=== PATIENT | female | born 1990 | race Hispanic/Latino ===

== ENCOUNTER → 2017-02-24 | Outpatient (CLI) | payer OTHER ==
[~2017-02-24] MED LIST: SINCALIDE 3 MCG/VIAL INJ ONE
--- NOTE | 2017-02-24 23:53 | Diagnostic Imaging Report ---
EXAM: HEPTOBILIARY W PHARM DATE: 02/24/2017 12:00 AM Time stamp on exam: 1609 hours INDICATION: Gallstones, upper abdominal pain COMPARISON: None TECHNIQUE: Following intravenous administration of 6.1 millicuries of technetium-99m mebrofenin, dynamic images of the abdomen in the anterior projection were obtained through 60 minutes. Sincalide (CCK analog) 1.5 mg was administered intravenously over 30 minutes with additional imaging for determination of gallbladder ejection fraction. FINDINGS: Perfusion to the liver is normal. Extraction of tracer from the blood pool by the liver parenchyma is normal. Tracer is seen promptly within the biliary tract. The gallbladder begins to fill by 51 minutes post-injection of tracer and fills adequately. Tracer is first seen in the small bowel at 12 minutes. The gallbladder ejection fraction with administration of sincalide is 25% (normal greater than 40%). IMPRESSION: Delayed filling of the gallbladder and low ejection fracture of 25% would support a clinical diagnosis of gallbladder dyskinesia/chronic cholecystitis. Filling of the gallbladder excludes a diagnosis of acute cystic duct obstruction. Signed by: Dr. Ruth Schreiber M.D. on 02/24/2017 11:49 PM
== END ==
LOC: NM 13:07
PROVIDERS: ATTEND Internal Medicine Gastroenterology
DX: R10.10 Upper abdominal pain, unspecified (principal); K80.80 Other cholelithiasis without obstruction
CPT/HCPCS: 78227; 81025; A9537; J2805

== ENCOUNTER → 2017-02-25 | Day surgery (SDC) | payer OTHER ==
[~2017-02-25] MED LIST changes: +FENTANYL CITRATE/PF 100MCG/2 ML INJ ONE; +HYOSCYAMINE SULFATE 0.5 MG/ML AMP ONE; +LIDOCAINE HCL 2% LOCAL INJ 5 ML SDV VIAL INJ ONE; +MIDAZOLAM HCL 2 MG/2 ML VIAL ONE; +PROPOFOL IV EMULSION 10 MG/ML 50 ML VIAL ONE; -SINCALIDE 3 MCG/VIAL INJ ONE
[2017-02-25 12:47] LABS: WBC,FECAL (FECAL LACTOFERRIN) NEGATIVE (NEGATIVE)
[2017-02-25 14:58] LABS: C DIFFICILE TOXIN A&B AMP PROB NEGATIVE (NEGATIVE)
--- NOTE | 2017-02-25 15:37 | Operative Report ---
DATE OF PROCEDURE: February 25, 2017 REFERRING PHYSICIAN: Dr. Qamar Sharma. PROCEDURES PERFORMED: Esophagogastroduodenoscopy with esophageal dilatation and colonoscopy with biopsies. INDICATIONS FOR EGD: Dysphagia to solids, history of nausea and vomiting. INDICATIONS FOR COLONOSCOPY: Diarrhea, history of mucousy stools. MEDICATIONS: Patient was done under MAC. Please see anesthesiologist's note. PROCEDURE: With the patient in lateral decubitus position, flexible fiberoptic Olympus gastroscope was introduced into the esophagus under direct visualization without any difficulty. There was some patchy erythema noted in distal esophagus. A mild stricture was noted at the GE junction and was dilated to size 52-[place] Byers. The scope was then advanced with ease into the stomach and mucosa overlying the antrum and the body revealed some patchy erythema and low-grade edema and biopsies were obtained and sent to stain for H. pylori. The pylorus was of normal contour and shape. It was intubated with ease and the scope was advanced all the way to the second portion of the duodenum. Biopsies were obtained from the proximal second portion to rule out sprue. There was an approximately 5 mm nodule in the proximal second portion ? hypertrophied accessory papilla and that was biopsied. The scope was then withdrawn back into the stomach and retroflexed and mucosa overlying the fundus and the cardia appeared to be within normal limits. The scope was then straightened out. The stomach was decompressed. Scope was subsequently withdrawn. Patient tolerated the procedure well. IMPRESSION 1. Mild distal esophagitis. 2. Esophageal stricture at gastroesophageal junction, dilated to size 52-[place] Byers. 3. Gastritis biopsied, biopsy sent to stain for H. pylori. 4. Approximately 5 mm nodule ? hypertrophied accessory papilla proximal second portion, biopsied. PLAN: Follow up histology. Initiate Protonix 40 mg 1 p.o. q.a.m. a.c. Patient was then turned around and after adequate lubrication of the anal canal, a flexible fiberoptic Olympus colonoscope was inserted into the rectum with ease and advanced all the way to the cecum. Mucosa overlying the cecum appeared to be within normal limits. The ileocecal valve was intubated and the scope was advanced into the terminal ileum. Biopsies were obtained. The scope was then withdrawn back into the colon. It was then withdrawn slowly. Mucosa overlying the ascending and the transverse was within normal limits. There were some patchy areas of erythema and low-grade edema noted. In the descending, sigmoid, and rectum, random biopsies were obtained. The scope was then retroflexed into the distal rectum and area around the dentate line appeared to be within normal limits. The scope was then straightened out. The rectosigmoid area as well as the distal rectal area were decompressed. The scope was subsequently withdrawn after securing an adequate stool specimen and that was sent for the appropriate stool studies. Patient tolerated the procedure well. IMPRESSION: Rule out microscopic colitis. PLAN: Follow up histology. Follow up stool studies. Initiate Bentyl 10 mg 1 p.o. t.i.d. Job#: [id number] VAS cc:Dr. Qamar Sharma
== END | disposition home or self-care (01) ==
LOC: OR 08:24
PROVIDERS: ATTEND Internal Medicine Gastroenterology
DX: K22.2 Esophageal obstruction (principal); K29.50 Unspecified chronic gastritis without bleeding; R19.7 Diarrhea, unspecified; K31.89 Other diseases of stomach and duodenum; K20.9 Esophagitis, unspecified; K80.20 Calculus of gallbladder without cholecystitis without obstruction; R63.4 Abnormal weight loss; F41.9 Anxiety disorder, unspecified; Z68.26 Body mass index [BMI] 26.0-26.9, adult; Z80.0 Family history of malignant neoplasm of digestive organs
CPT/HCPCS: 43239; 43450; 45380; 81025; 83630; 83993; 87045; 87177; 87328; 87493; J1980; J2001; J2250